=== PATIENT | female | born 1970 | race Caucasian/White ===

== ENCOUNTER 2017-06-29 21:02 | Emergency (ER) | payer BC ==
--- OUTSIDE RECORDS SUMMARY | 2017-06-29 21:08 | XMS REPORT ---
:1970 External Reference #:[id number] Author Organization [facility] [employer] [facility] Address [address] [place] [address] Phone [phone] Care Team Providers Name Role Phone Vicki Rodriguez Care Team Information Shop Steward Unavailable Vicki Rodriguez Primary Care Physician Unavailable Payers Type Date Identification Numbers Payment Provider Subscriber Commercial Effective: Policy Number: [employer] BC/BS Leigh Cuevas 2014 [id number] [facility] PayID: [id number] [address] [address] [place] [address] Problems Description No Information Family History Date Family Member(s) Problem(s) Comments Father Hypertension Father Heart Disease signs of previous AR Mother A&W Children 4 First Son A&W First Daughter A&W Second Daughter A&W Third Daughter A&W Siblings 4 First Sister A&W Second Sister A&W Third Sister A&W Fourth Sister A&W Paternal Grandfather due to Mesothelioma () Paternal Grandmother due to Old Age () Paternal Grandmother Hypertension Paternal Grandmother Heart Disease Maternal Grandfather due to Prostate Cancer () Maternal Grandmother Breast Cancer remission Social History Type Date Description Comments Marital Status Lives With Spouse Lives With Son Lives With Daughters Pets 2 dogs Pets 1 cat 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 Cigarette Use Never Smoked Cigarettes ETOH Use Occasionally consumes alcohol Recreational Drug Use Does Not Use Drugs Smoking Patient has never smoked Daily Caffeine Consumes on average 3 cups of coffee per day Daily Caffeine Iced Tea All day long Exercise Type/Frequency Exercises sporadically Seat Belt/Car Seat Always uses seat belt Currently Active Patient is currently sexually active Contraceptive Methods Current methods include vasectomy STD's No STD History Allergies, Adverse Reactions, Alerts Date Description Reaction Status Severity Comments 10/12/2016 Flexeril passes out active Medications Medication Date Status Form Strength Qnty SIG Indications Ordering Provider Seasonique Active Unknown Singulair Active Unknown Clarinex Active Unknown Ferrous Sulfate Active Unknown Pepcid Active Unknown Vitamin D Active Unknown Vitamin B-12 Active Unknown Prilosec Active Unknown Omeprazole - Hx Unknown 10/12/2016 Vital Signs Date Vital Result Comment 11/15/2016 BP Systolic 140 mmHg BP Diastolic 80 mmHg Height 62 inches 5'2" Weight 151.00 lb BMI (Body Mass Index) 27.6 kg/m2 Last Menstrual Period 1813222 5 Parity 4 10/12/2016 BP Systolic 120 mmHg BP Diastolic 86 mmHg Height 62 inches 5'2" Weight 149.00 lb BMI (Body Mass Index) 27.2 kg/m2 Last Menstrual Period 1526974 5 Parity 4 Results Test Date Test Result H/L Range Note Laboratory test finding 10/12/2016 Cytology SEE RESULT BELOW 1 Human Papilloma Virus Rna Negative Negative 2 1 SEE RESULT BELOW Name: LEIGH CUEVAS : [address]: Michelle Fletcher MD Acct: [id number] Unit: [id number] AGE: 46 Location: [facility] Re10/12/16 SEX: F Status: REG REF SPEC: [id number] CHUCHO: 10/12/[address] [facility] [address]: Michelle Fletcher MD REQ: [id number] RECD: 10/12/16 STATUS: SOUT _ ORDERED: TP IMAGE ANAL, HPV/Thin Prep COMMENTS: [id number] FINAL DIAGNOSIS Negative for Intraepithelial lesion or Malignancy A. Ectocervical/Endocervical Specimen Adequacy: Satisfactory of evaluation Transformation zone component identified Patient Information: HPV: High risk HPV RNA testing regardless of pap results. Actual Specimen Date: 10/12/16 Last Menstrual Date: 08/22/16 Spec Date if unknown: unknown ?: N Post Menopausal?: N Hysterectomy?: N Date Time Test Result Flag (u) Normal Range 10/12/16933 HPV RNA Negative Negative The high-risk HPV types detected by the assay include: 16, 18, 31, 33, 35, 39, 45, 51, 52, 56, 58, 59, 66, and 68. Signed (signature on file) MARKEL Portillo(ASCP) 10/13 5107 This Pap test was evaluated with the assistance of the ThinPrep Test Imaging System. Due to cytologic findings at the [facility] architect microscope, comprehensive manual rescreening by a Test Preparation Tutor may be required. The Pap Smear is a screening test designed to aid in the detection of premalignant and malignant conditions of the uterine cervix. It is not a diagnostic procedure and should not be used as the sole means of detecting cervical cancer. Both false- positive and false- negative reports do occur. Depending on your risk status, a Pap smear should be obtained and evaluated every 1-3 years. END OF REPORT * ML=Testing performed at Main Lab DEPARTMENT OF PATHOLOGY, [address] [place] [address] Yosef Cross M.D. Director [facility] # [id number] 2 The high-risk HPV types detected by the assay include: 16, 18, 31, 33, 35, 39, 45, 51, 52, 56, 58, 59, 66, and 68. Procedures Date CPT Code Description Status 05/03/2017 Mammogram Completed 11/15/2016 53404 Echography Pelvic Limited Or Follow-Up Completed 11/15/2016 03411 Echography Transvaginal Completed Encounters Type Date Location Provider CPT E/M Dx Office Visit 10/12/2016 9:00a [place] [address] N92.6 Plan of Care No Information Available
[2017-06-29 23:33] LABS: ABS Basophils 0 10^3/ul (0-0.2); ABS Eosinophils 0.2 10^3/ul (0-0.6); ABS Lymphocytes 1.1 10^3/ul (1.0-4.8); ABS Monocytes 0.5 10^3/ul (0-0.8); ABS Nucleated RBC 0 10^3/ul; Hematocrit 42 % (35-47); Hemoglobin 14.6 g/dl (12.0-16.0); Lymphocyte % 11.3 % (25-47); Mean Corpuscular HGB Conc 35 g/dl (31-36); Mean Corpuscular Hemoglobin 32 pg (27-31); Mean Corpuscular Volume 93 fL (80-97); Mean Platelet Volume 7 um3 (7.4-10.4); Nucleated Red Blood Cells % 0; Platelet Count 218 10^3/ul (150-450); Red Blood Count 4.53 10^6/ul (4.0-5.4); Red Cell Distribution Width 12 % (10.5-15); White Blood Count 9.9 10^3/ul (3.5-10.8)
[2017-06-29 23:44] LABS: INR 0.84 (0.77-1.02)
[2017-06-29 23:50] LABS: EGFR Non-African American 59.9 (>60)
[2017-06-30 00:23] LABS: Urine Appearance Clear; Urine Blood 2+ (Negative); Urine Color Straw; Urine Ketones Negative (Negative); Urine Protein Negative (Negative); Urine Specific Gravity 1.004 (1.010-1.030); Urine Urobilinogen Negative (Negative)
[2017-06-30] MEDS ORDERED: Cephalexin CAP* 500 MG PO ONE (00:36)
[2017-06-30 02:32] VITALS: BP 126/71
--- NOTE | 2017-06-30 07:54 | ED ---
Edward Davila Angela, scribed for Joel Miller MD on 06/29/17 at 2350 . Neurological HPI - HPI Summary HPI Summary: This pt is a 46 y/o female presenting to [facility] via EMS for a possible seizure today. Pt reports she was sitting in the couch watching TV and felt like passing out. She additionally states she felt hot, nauseous, and had heart flutter ("one beat that was weird"). Pt then passed out. She states that upon waking up her feet and hands were numb, and was nauseous (usual symptoms in past seizures). Pt also notes she was unable to speak, and reports this time it took a lot longer to be able to speak. Now she c/o some neck soreness. Daughter notes she was found in an uncomfortable position with her neck. Her last seizure was 8-9 years ago. During her last seizure she had a head cold , took sudafed, and was sitting at her desk at work when she became dizzy. She stood up to walk and the next thing she knows she woke up on the floor. She was taken to the hospital and was told she had strong vasovagal reaction and had fluid in her ears. When she was younger she reports she would pass out from hitting her knee or elbow. Pt has seen a neurologist in the past and has had EEG that was negative. She denies PMHx of sleep apnea. Daughter states pt snores "really bad." Pt is currently on Clarinex, Singulair, Omeprazole. - History of Current Complaint Chief Complaint: EDSeizure Stated Complaint: SYNCOPE Hx Obtained From: Patient Onset/Duration: Started hours ago, Resolved Timing: Sudden Onset Current Severity: None Seizure Severity: Moderate Pain Intensity: 0 Pain Scale Used: 0-10 Numeric Character: Weak, Numbness/Tingling - of feet and hands, Impaired Speech, Other: - POS: nausea, heart flutter Episode Lasting: Seconds/Minutes Aggravating: Nothing Alleviating: Spontanious Resolution Associated Signs and Symptoms: Positive: Weakness, Loss of Consciousness, Impaired Speech, Nausea/Vomiting - only nausea - Allergy/Home Medications Allergies/Adverse Reactions: Allergies Allergy/AdvReac Type Severity Reaction Status Date / Time MS Cyclobenzaprine Allergy Unknown Verified 01/17/15 17:45 [From Flexeril] Reaction Details PMH/Surg Hx/FS Hx/Imm Hx Endocrine/Hematology History: Denies: Hx Diabetes - Cancer History Hx Chemotherapy: No Hx Radiation Therapy: No Infectious Disease History: Yes Infectious Disease History: Denies: Traveled Outside the [place] in Last 30 Days - Family History Known Family History: Positive: Cardiac Disease, Hypertension, Other - Mother: Meniere's disease. - Social History Alcohol Use: Rare Substance Use Type: Reports: None Smoking Status (MU): Never Smoked Tobacco Review of Systems Negative: Fever, Chills Eyes: Negative ENT: Negative Cardiovascular: Negative Respiratory: Negative Gastrointestinal: Negative Musculoskeletal: Other - sore neck Positive: Syncope All Other Systems Reviewed And Are Negative: Yes Physical Exam - Summary Physical Exam Summary: Appearance: Well-appearing, Well-nourished Skin: Warm Eyes: Normal ENT: Normal Neck: Supple, nontender Respiratory: Clear to auscultation Cardiovascular: Normal S1, S2. No murmurs. Normal distal pulses. Abdomen: Soft, nontender Musculoskeletal: Normal, Strength/ROM Intact Neurological: Normal, A&Ox3. CN II- XII intact. Coordination intact. Psychiatric: Normal Triage Information Reviewed: Yes Vital Signs On Initial Exam: Initial Vitals Temp Pulse Resp BP Pulse Ox 98.2 F 77 17 140/84 97 06/29/17 21:18 06/29/17 21:18 06/29/17 21:18 06/29/17 21:18 06/29/17 21:18 Vital Signs Reviewed: Yes - [place] Coma Scale Best Eye Response: 4 - Spontaneous Best Motor Response: 6 - Obeys Commands Best Verbal Response: 5 - Oriented Coma Scale Total: 15 Diagnostics - Vital Signs Vital Signs Temp Pulse Resp BP Pulse Ox 06/29/17 21:33 76 15 94 06/29/17 21:31 136/85 06/29/17 21:18 98.2 F 77 17 140/84 97 - Laboratory Lab Results: Lab Results 06/29/17 06/29/17 06/29/17 Range/Units 23:00 23:00 23:00 WBC 9.9 (3.5-10.8) 10^3/ul RBC 4.53 (4.0-5.4) 10^6/ul Hgb 14.6 (12.0-16.0) g/dl Hct 42 (35-47) % MCV 93 (80-97) fL MCH 32 H (27-31) pg MCHC 35 (31-36) g/dl RDW 12 (10.5-15) % Plt Count 218 (150-450) 10^3/ul MPV 7 L (7.4-10.4) um3 Neut % (Auto) 80.8 (38-83) % Lymph % (Auto) 11.3 L (25-47) % Anderson % (Auto) 5.5 (1-9) % Eos % (Auto) 2.0 (0-6) % Baso % (Auto) 0.4 (0-2) % Absolute Neuts (auto) 8.0 H (1.5-7.7) 10^3/ul Absolute Lymphs (auto) 1.1 (1.0-4.8) 10^3/ul Absolute Monos (auto) 0.5 (0-0.8) 10^3/ul Absolute Eos (auto) 0.2 (0-0.6) 10^3/ul Absolute Basos (auto) 0 (0-0.2) 10^3/ul Absolute Nucleated RBC 0 10^3/ul Nucleated RBC % 0 INR (Anticoag Therapy) (0.77-1.02) Sodium 135 (133-145) mmol/L Potassium 3.5 (3.5-5.0) mmol/L Chloride 103 (101-111) mmol/L Carbon Dioxide 26 (22-32) mmol/L Anion Gap 6 (2-11) mmol/L BUN 17 (6-24) mg/dL Creatinine 0.99 H (0.51-0.95) mg/dL Est GFR ( Amer) 77.0 (>60) Est GFR (Non-Af Amer) 59.9 (>60) BUN/Creatinine Ratio 17.2 (8-20) Glucose 149 H (70-100) mg/dL Lactic Acid 1.6 (0.5-2.0) mmol/L Calcium 9.1 (8.6-10.3) mg/dL Magnesium 2.0 (1.9-2.7) mg/dL Total Bilirubin 0.30 (0.2-1.0) mg/dL AST 15 (13-39) U/L ALT 14 (7-52) U/L Alkaline Phosphatase 40 (34-104) U/L Total Protein 6.1 L (6.4-8.9) g/dL Albumin 3.5 (3.2-5.2) g/dL Globulin 2.6 (2-4) g/dL Albumin/Globulin Ratio 1.3 (1-3) TSH 1.40 (0.34-5.60) mcIU/mL Urine Color Urine Appearance Urine pH (5-9) Ur Specific [place] (1.010-1.030) Urine Protein (Negative) Urine Ketones (Negative) Urine Blood (Negative) Urine Nitrate (Negative) Urine Bilirubin (Negative) Urine Urobilinogen (Negative) Ur Leukocyte Esterase (Negative) Urine WBC (Auto) (Absent) Urine RBC (Auto) (Absent) Ur Squamous Epith Cells (Absent) Urine Bacteria (Absent) Urine Glucose (Negative) Urine Opiates Screen (None Detect) Ur Barbiturates Screen (None Detect) Ur Phencyclidine Scrn (None Detect) Ur Amphetamines Screen (None Detect) U Benzodiazepines Scrn (None Detect) Urine Cocaine Screen (None Detect) U Cannabinoids Screen (None Detect) Serum Alcohol < 10 (<10) mg/dL 06/29/17 06/29/17 06/29/17 Range/Units 23:13 23:55 23:55 WBC (3.5-10.8) 10^3/ul RBC (4.0-5.4) 10^6/ul Hgb (12.0-16.0) g/dl Hct (35-47) % MCV (80-97) fL MCH (27-31) pg MCHC (31-36) g/dl RDW (10.5-15) % Plt Count (150-450) 10^3/ul MPV (7.4-10.4) um3 Neut % (Auto) (38-83) % Lymph % (Auto) (25-47) % Anderson % (Auto) (1-9) % Eos % (Auto) (0-6) % Baso % (Auto) (0-2) % Absolute Neuts (auto) (1.5-7.7) 10^3/ul Absolute Lymphs (auto) (1.0-4.8) 10^3/ul Absolute Monos (auto) (0-0.8) 10^3/ul Absolute Eos (auto) (0-0.6) 10^3/ul Absolute Basos (auto) (0-0.2) 10^3/ul Absolute Nucleated RBC 10^3/ul Nucleated RBC % INR (Anticoag Therapy) 0.84 (0.77-1.02) Sodium (133-145) mmol/L Potassium (3.5-5.0) mmol/L Chloride (101-111) mmol/L Carbon Dioxide (22-32) mmol/L Anion Gap (2-11) mmol/L BUN (6-24) mg/dL Creatinine (0.51-0.95) mg/dL Est GFR ( Amer) (>60) Est GFR (Non-Af Amer) (>60) BUN/Creatinine Ratio (8-20) Glucose (70-100) mg/dL Lactic Acid (0.5-2.0) mmol/L Calcium (8.6-10.3) mg/dL Magnesium (1.9-2.7) mg/dL Total Bilirubin (0.2-1.0) mg/dL AST (13-39) U/L ALT (7-52) U/L Alkaline Phosphatase (34-104) U/L Total Protein (6.4-8.9) g/dL Albumin (3.2-5.2) g/dL Globulin (2-4) g/dL Albumin/Globulin Ratio (1-3) TSH (0.34-5.60) mcIU/mL Urine Color Straw Urine Appearance Clear Urine pH 6.0 (5-9) Ur Specific [place] 1.004 L (1.010-1.030) Urine Protein Negative (Negative) Urine Ketones Negative (Negative) Urine Blood 2+ H (Negative) Urine Nitrate Negative (Negative) Urine Bilirubin Negative (Negative) Urine Urobilinogen Negative (Negative) Ur Leukocyte Esterase Trace H (Negative) Urine WBC (Auto) Trace(0-5/hpf) (Absent) Urine RBC (Auto) Trace(0-2/hpf) (Absent) Ur Squamous Epith Cells Present H (Absent) Urine Bacteria 1+ H (Absent) Urine Glucose Negative (Negative) Urine Opiates Screen None detected (None Detect) Ur Barbiturates Screen None detected (None Detect) Ur Phencyclidine Scrn None detected (None Detect) Ur Amphetamines Screen None detected (None Detect) U Benzodiazepines Scrn None detected (None Detect) Urine Cocaine Screen None detected (None Detect) U Cannabinoids Screen None detected (None Detect) Serum Alcohol (<10) mg/dL Result Diagrams: 06/29/17 23:00 06/29/17 23:00 Lab Statement: Any lab studies that have been ordered have been reviewed, and results considered in the medical decision making process. - CT Brain CT CT Interpretation: No Acute Changes - IMPRESSION: Mild ventriculomegaly without evidence of edema or mass effect. Findings likely related to normal variation and some atrophic change. Dr. Miller has reviewed this radiology report. CT Interpretation Completed By: Radiologist - EKG 21:28 Cardiac Rate: NL EKG Rhythm: Sinus Rhythm - at 74 bpm Course/Dx - Course Assessment/Plan: no repeat episodes here in ed, neuro intact, ct head unremarkable. 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 In no acute distress, agrees to and understands dc instructions. Unlikely to be seizure activity based on neg eeg in the past and symptoms not typical of seizure activity. - Diagnoses Provider Diagnoses: Syncope, near, UTI (urinary tract infection) Discharge - Discharge Plan Condition: Improved Disposition: HOME Prescriptions: Cephalexin CAP* [Keflex CAP*] 500 mg PO BID #10 cap Patient Education Materials: Urinary Tract Infection in Women (ED), Syncope (ED ) Referrals: Jorge Brown MD [Medical Doctor] - Ander Atwood MD [Primary Care Provider] - Norma Meek MD [Medical Doctor] - Additional Instructions: PLEASE MAKE AN APPOINTMENT FIRST THING IN THE MORNING TO BE SEEN BY DR. MEEK FOR SLEEP STUDY AND DR. BROWN FOR FOLLOW UP WITHIN 1-2 WEEKS PLEASE RETURN IMMEDIATELY TO THE ER IF YOU HAVE ANY WORSENING OR CONCERNING SYMPTOMS PLEASE MAKE AN APPOINTMENT TO BE SEEN BY YOUR PRIMARY CARE DOCTOR WITHIN 1 WEEK The documentation as recorded by the Edward vargas Angela accurately reflects the service I personally performed and the decisions made by me, Joel Miller MD.
--- NOTE | 2017-06-30 08:16 | RAD ---
Indication: Altered mental status. CT of the brain was performed without IV contrast. Comparison is made with previous exam dated 11/04/2011 and 04/18/2011 Ventricular structures are midline. No midline shift is noted. There is mild ventriculomegaly noted likely due to central atrophy. There is central and cortical atrophy noted. There is no evidence of intracranial mass or hemorrhage. No other high or low density lesions are identified. Paranasal sinuses are otherwise unremarkable. Mastoid air cells are unremarkable. Bony calvaria is unremarkable. IMPRESSION: No intracranial mass or hemorrhage. Mild ventriculomegaly consistent with atrophy. No changes noted since prior exam of April 18, 2011.
== END 2017-06-30 02:31 | disposition home or self-care (01) ==
LOC: ED 21:02
DX: R55 Syncope and collapse (principal); N39.0 Urinary tract infection, site not specified
CPT/HCPCS: 36415; 70450; 80053; 80307; 80320; 81003; 81015; 83605; 83735; 84443; 85025; 85610; 87086; 93005; 99284; A9270-GY; G0480

== ENCOUNTER 2017-09-21 06:19 | Day surgery (SDC) | payer BC ==
[~2017-09-21 06:19] MED LIST: Buffered Lidocaine 0.9% SYRIN* 5 ML/SYR SYRINGE INTRADERM ONE
[2017-09-21] MEDS ORDERED: ceFAZolin 2 GM PREMIX (*) 2 GM/50 ML BAG IVPB ONE (06:27)
[2017-09-21] MEDS ORDERED: Bacitracin OINTMENT* 0.5% 0.5 oz TUBE ONE (07:15)
[2017-09-21] MEDS ORDERED: BSS OPTH.SOL* BTL ONE (07:15)
[2017-09-21] MEDS ORDERED: Methylene Blue 0.5 %* 50 MG/10 ML AMP IV ONE (07:16)
[2017-09-21] MEDS ORDERED: Lidocain 1% EPI 1:100,000 * 30 ML MDV ONE (07:16)
[2017-09-21] MEDS ORDERED: fentaNYL* 50 MCG/ML 2 ML VIAL (100 MCG VIAL) ONE (07:18)
[2017-09-21] MEDS ORDERED: Midazolam* 1 MG/ML 2 ML VIAL (2 MG) ONE ×2 (07:19→07:40)
[2017-09-21] MEDS ORDERED: Propofol* 10 MG/ML 20 ML BTL IV PUSH ONE (07:40)
[2017-09-21] MEDS ORDERED: Artificial Tear OPHTH.OINT* 3.5 GM ONE (08:05)
[2017-09-21] MEDS ORDERED: Naloxone* 0.4 MG/ML 1 ML VIAL IV PRN (08:17)
[2017-09-21 08:25] VITALS: BP 130/73
== END 2017-09-21 08:48 | disposition home or self-care (01) ==
LOC: OREAST 06:19
PROVIDERS: ATTEND Plastic Surgery
DX: D23.11 Other benign neoplasm of skin of right eyelid, including canthus (principal); I10 Essential (primary) hypertension; F41.8 Other specified anxiety disorders; K21.9 Gastro-esophageal reflux disease without esophagitis; J45.909 Unspecified asthma, uncomplicated
CPT/HCPCS: 88305; A9270-GY; J0690; J2250; J2704; J3010